=== PATIENT | male | born 1975 ===

== ENCOUNTER → 2022-09-11 | Outpatient (CLI) | payer OTHER | LOC: LAB 08:41 → LAB SHORT 08:41 | DX: J02.9 Acute pharyngitis, unspecified (principal) | CPT/HCPCS: 87081; 87147 ==

== ENCOUNTER 2023-02-14 10:43 | Emergency (ER) | payer OTHER ==
[~2023-02-14] VITALS: Ht 175.3 cm; Wt 83.9 kg
[2023-02-14 12:00] LABS: Influenza B, PCR NEGATIVE (NEGATIVE); Resp Syncytial Virus, PCR NEGATIVE (NEGATIVE); SARS-Cov-2 (COVID-19) PCR, MMC NEGATIVE (NEGATIVE)
[2023-02-14 13:25] LABS: Influenza A, PCR POSITIVE (NEGATIVE)
== END 2023-02-14 13:29 | disposition home or self-care (01) ==
LOC: ER 10:43
PROVIDERS: Student in an Organized Health Care Education/Training Program
DX: J10.1 Influenza due to other identified influenza virus with other respiratory manifestations (principal); Z20.822 Contact with and (suspected) exposure to COVID-19
CPT/HCPCS: 0241U; 71046; 99283-25